=== PATIENT | female | born 1990 | race African-American/Black ===

== ENCOUNTER 2016-11-11 09:31 | Emergency (ER) | payer SELFPAY ==
[~2016-11-11] VITALS: Ht 160 cm; Wt 75.0 kg
[2016-11-11 09:34] VITALS: BP 131/91; PULSE 83; RESP 16; TEMP 98.3; O2SAT 97
[2016-11-11] MEDS ORDERED: SODIUM CHLOR 0.9% 1000 ML INJ 1,000 ML IV SCH (09:44)
--- NOTE | 2016-11-11 09:44 | PD ---
HPI Chief Complaint: GI Complaint Time Seen by Provider: 09:41 Travel History International Travel<30 days: No Contact w/Intl Traveler<30days: No Traveled to known affect area: No History of Present Illness HPI 26-year-old Afro-[place]og[place] female presents the emergency Department with sudden onset nausea, vomiting, and diarrhea since approximately midnight last night. She denies fever, chills, chest pain, shortness of breath, or other symptoms. She denies eating anything suspicious yesterday. She denies significant abdominal pain. Patient states she could be . She denies CVA tenderness or urinary symptoms. She denies vaginal discharge. Patient states history of gallstones that were diagnosed in May, but patient denies abdominal pain. She has no known drug allergies. PFSH Past Medical History ?: Unknown Social History Alcohol Use: Yes Tobacco Use: Yes Substance Use: Yes Allergies-Medications (Allergen,Severity, Reaction): Coded Allergies: No Known Allergies (Unverified , 11/11/16) Reported Meds & Prescriptions Reported Meds & Active Scripts Active Reported Tramadol (Tramadol HCl) 50 Mg Tab 50 Mg PO Q4H PRN Review of Systems Except as stated in HPI: all other systems reviewed are Neg General / Constitutional: No: Fever Eyes: No: Visual changes HENT: No: Headaches Cardiovascular: No: Chest Pain or Discomfort Respiratory: No: Shortness of Breath Gastrointestinal: Positive: Nausea, Vomiting, Diarrhea, Loss of Appetite, No: Abdominal Pain, Constipation Genitourinary: No: Dysuria, Pelvic Pain, Flank Pain, Discharge, Vaginal Bleeding Musculoskeletal: No: Pain Skin: No Rash Neurologic: No: Weakness Psychiatric: No: Depression Endocrine: No: Polydipsia Hematologic/Lymphatic: No: Easy Bruising Physical Exam Narrative GENERAL: Patient appears in no acute distress. SKIN: Warm and dry. Normal color. Normal turgor. No rash. HEAD: Atraumatic. Normocephalic. EYES: Pupils equal and round. No scleral icterus. No injection or drainage. ENT: No nasal bleeding or discharge. Mucous membranes pink and moist. TMs are clear bilaterally. Pharynx is normal. NECK: Trachea midline. Supple and nontender.. CARDIOVASCULAR: Regular rate and rhythm. RESPIRATORY: No accessory muscle use. Clear to auscultation. Breath sounds equal bilaterally. GASTROINTESTINAL: Abdomen soft, non-tender, nondistended. Hepatic and splenic margins not palpable. No CVA tenderness. No right upper quadrant tenderness. MUSCULOSKELETAL: Extremities without clubbing, cyanosis, or edema. No obvious deformities. NEUROLOGICAL: Awake and alert. No obvious cranial nerve deficits. Motor grossly within normal limits. Five out of 5 muscle strength in the arms and legs. Normal speech. PSYCHIATRIC: Appropriate mood and affect; insight and judgment normal. Data Data Last Documented VS Vital Signs Date Time Temp Pulse Resp B/P Pulse Ox O2 Delivery O2 Flow Rate FiO2 11/11/16 10:02 80 14 128/80 99 Room Air 11/11/16 09:34 98.3 Orders Complete Blood Count With Diff (11/11/16 09:44) Comprehensive Metabolic Panel (11/11/16 09:44) Lipase (11/11/16 09:44) Urinalysis - C+S If Indicated (11/11/16 09:44) Iv Access Insert/Monitor (11/11/16 09:44) Ecg Monitoring (11/11/16 09:44) Oximetry (11/11/16 09:44) Ondansetron Inj (Zofran Inj) (11/11/16 09:45) Sodium Chlor 0.9% 1000 Ml Inj (Ns 1000 M (11/11/16 09:44) Sodium Chloride 0.9% Flush (Ns Flush) (11/11/16 09:45) Ed Urine Pregnancytest Poc (11/11/16 09:44) Labs Laboratory Tests Test 11/11/16 11/11/16 09:50 10:00 Urine Color YELLOW Urine Turbidity CLEAR Urine pH 6.0 Urine Specific [place] 1.015 Urine Protein NEG mg/dL Urine Glucose (UA) NEG mg/dL Urine Ketones 10 mg/dL Urine Occult Blood NEG Urine Nitrite NEG Urine Bilirubin NEG Urine Urobilinogen LESS THAN 2.0 MG/DL Urine Leukocyte Esterase MOD Urine RBC LESS THAN 1 /hpf Urine WBC 2 /hpf Urine Squamous Epithelial 2 /hpf Cells Urine Bacteria RARE /hpf Urine Mucus FEW /lpf Microscopic Urinalysis Comment CULT NOT INDICATED White Blood Count 10.8 TH/MM3 Red Blood Count 4.95 MIL/MM3 Hemoglobin 13.6 GM/DL Hematocrit 39.9 % Mean Corpuscular Volume 80.7 FL Mean Corpuscular Hemoglobin 27.4 PG Mean Corpuscular Hemoglobin 34.0 % Concent Red Cell Distribution Width 13.8 % Platelet Count 205 TH/MM3 Mean Platelet Volume 10.9 FL Neutrophils (%) (Auto) 86.5 % Lymphocytes (%) (Auto) 8.9 % Monocytes (%) (Auto) 3.5 % Eosinophils (%) (Auto) 0.7 % Basophils (%) (Auto) 0.4 % Neutrophils # (Auto) 9.4 TH/MM3 Lymphocytes # (Auto) 1.0 TH/MM3 Monocytes # (Auto) 0.4 TH/MM3 Eosinophils # (Auto) 0.1 TH/MM3 Basophils # (Auto) 0.0 TH/MM3 CBC Comment DIFF FINAL Differential Comment Sodium Level 139 MEQ/L Potassium Level 3.8 MEQ/L Chloride Level 105 MEQ/L Carbon Dioxide Level 28.6 MEQ/L Anion Gap 5 MEQ/L Blood Urea Nitrogen 9 MG/DL Creatinine 0.78 MG/DL Estimat Glomerular Filtration 90 ML/MIN Rate Random Glucose 94 MG/DL Calcium Level 10.1 MG/DL Total Bilirubin 0.6 MG/DL Aspartate Amino Transf 12 U/L (AST/SGOT) Alanine Aminotransferase 32 U/L (ALT/SGPT) Alkaline Phosphatase 100 U/L Total Protein 8.9 GM/DL Albumin 4.2 GM/DL Lipase 109 U/L MDM Medical Decision Making Medical Screen Exam Complete: Yes Emergency Medical Condition: Yes Differential Diagnosis Nausea vomiting. Diarrhea. Gastroenteritis. Colitis. Gallstone colic. Urinary tract infection. Possible . Narrative Course Patient is medically stable at time of exam. Labs ordered including CBC, CMP, lipase. Urinalysis is checked as well as urine test. IV access is obtained patient is given 4 mg Zofran IV as well as 1000 mg normal saline bolus. CBC is unremarkable. CMP is unremarkable. Urinalysis shows no sign of active infection. Patient will be treated for gastroenteritis which is felt to be viral in nature. Patient is given Zofran 4 mg one every 6 hours when necessary. Patient can take Tylenol and ibuprofen as well as needed. Patient should rest and push fluids and to take [id number] Imodium as needed for diarrhea. Work note is given. Patient to follow up if symptoms do not improve or worsen in the next several days. Diagnosis Primary Impression: Gastroenteritis and colitis, viral Referrals: Primary Care Physician Patient Instructions: Acute Diarrhea (ED), Acute Nausea and Vomiting (ED), General Instructions Departure Forms: Work Release Enter return to work date: Nov 12, 2016 Additional Instructions: Patient will be treated for gastroenteritis which is felt to be viral in nature. Patient is given Zofran 4 mg one every 6 hours when necessary. Patient can take Tylenol and ibuprofen as well as needed. Patient should rest and push fluids and to take [id number] Imodium as needed for diarrhea. Work note is given. Patient to follow up if symptoms do not improve or worsen in the next several days. Med/Other Pt SpecificInfo: Prescription(s) given Scripts Ondansetron (Zofran)4 Mg Tab4 Mg PO Q6HR PRN (NAUSEA OR VOMITING) #12 TAB Prov:Alycia Crawford MD 11/11/16 Disposition: 01 DISCHARGE HOME Condition: Stable Floyd Lawrence Nov 11, 2016 09:44
[2016-11-11] MEDS ORDERED: SODIUM CHLORIDE 0.9% FLUSH 10 ML FLUSH IV FLUSH PRN (09:45)
[2016-11-11] MEDS ORDERED: ONDANSETRON HCL 4 MG/2 ML VIAL IVP ONE (09:45)
[2016-11-11 10:02] VITALS: BP 128/80; PULSE 80; RESP 14; O2SAT 99
[2016-11-11] MEDS ORDERED: TRAM50TA PO (10:05)
[2016-11-11 10:22] LABS: BACTERIA, URINE RARE /hpf; BLOOD, URINE NEG (NEG); COMMENT (UR) CULT NOT INDICATED; CULTURE IF INDICATED CULT NOT INDICATED; GLUCOSE,URINE NEG (NEG); KETONE, URINE 10 mg/dL (NEG); MUCUS URINE FEW /lpf (OCC); NITRITE,URINE NEG (NEG); SQUAMOUS EPITHELIAL CELL URINE 2 /hpf (0-5); URINE COLOR YELLOW (YELLW/STRAW)
[2016-11-11 10:24] LABS: AUTOMATED NEUTROPHIL # 9.4 TH/MM3 (1.8-7.7); BASOPHIL % 0.4 % (0.0-2.0); EOSINOPHIL # 0.1 TH/MM3 (0-0.4); EOSINOPHIL % 0.7 % (0.0-4.0); HEMATOCRIT 39.9 % (35.0-46.0); HEMO FLAGS DIFF FINAL; LYMPH % 8.9 % (9.0-44.0); MEAN CELL VOLUME 80.7 FL (80.0-100.0); MEAN CORPUSCULAR HEMOGLOBIN 27.4 PG (27.0-34.0); MONO % 3.5 % (0.0-8.0); NEUT % 86.5 % (16.0-70.0); PLATELET COUNT 205 TH/MM3 (150-450); RED BLOOD COUNT 4.95 MIL/MM3 (4.00-5.30); RED CELL DISTRIBUTION WIDTH 13.8 % (11.6-17.2); WHITE BLOOD COUNT 10.8 TH/MM3 (4.0-11.0)
[2016-11-11 10:38] LABS: ALT (GPT) 32 U/L (10-53); ANION GAP 5 MEQ/L (5-15); AST (GOT) 12 U/L (15-37); BICARBONATE 28.6 MEQ/L (21.0-32.0); BLOOD UREA NITROGEN 9 MG/DL (7-18); CHLORIDE 105 MEQ/L (98-107); GLOMERULAR FILTRATION RATE 90 ML/MIN (>89); POTASSIUM 3.8 MEQ/L (3.5-5.1); SODIUM (NA) 139 MEQ/L (136-145)
[2016-11-11 10:41] LABS: ALKALINE PHOSPHATASE 100 U/L (45-117); TOTAL BILIRUBIN ADULT 0.6 MG/DL (0.2-1.0)
[2016-11-11] MEDS ORDERED: ZOFR4TAB PO (10:44)
--- NOTE | 2016-11-11 10:47 | PD ---
Data Data Last Documented VS Vital Signs Date Time Temp Pulse Resp B/P Pulse Ox O2 Delivery O2 Flow Rate FiO2 11/11/16 10:02 80 14 128/80 99 Room Air 11/11/16 09:34 98.3 Orders Complete Blood Count With Diff (11/11/16 09:44) Comprehensive Metabolic Panel (11/11/16 09:44) Lipase (11/11/16 09:44) Urinalysis - C+S If Indicated (11/11/16 09:44) Iv Access Insert/Monitor (11/11/16 09:44) Ecg Monitoring (11/11/16 09:44) Oximetry (11/11/16 09:44) Ondansetron Inj (Zofran Inj) (11/11/16 09:45) Sodium Chlor 0.9% 1000 Ml Inj (Ns 1000 M (11/11/16 09:44) Sodium Chloride 0.9% Flush (Ns Flush) (11/11/16 09:45) Ed Urine Pregnancytest Poc (11/11/16 09:44) Labs Laboratory Tests Test 11/11/16 11/11/16 09:50 10:00 Urine Color YELLOW Urine Turbidity CLEAR Urine pH 6.0 Urine Specific [place] 1.015 Urine Protein NEG mg/dL Urine Glucose (UA) NEG mg/dL Urine Ketones 10 mg/dL Urine Occult Blood NEG Urine Nitrite NEG Urine Bilirubin NEG Urine Urobilinogen LESS THAN 2.0 MG/DL Urine Leukocyte Esterase MOD Urine RBC LESS THAN 1 /hpf Urine WBC 2 /hpf Urine Squamous Epithelial 2 /hpf Cells Urine Bacteria RARE /hpf Urine Mucus FEW /lpf Microscopic Urinalysis Comment CULT NOT INDICATED White Blood Count 10.8 TH/MM3 Red Blood Count 4.95 MIL/MM3 Hemoglobin 13.6 GM/DL Hematocrit 39.9 % Mean Corpuscular Volume 80.7 FL Mean Corpuscular Hemoglobin 27.4 PG Mean Corpuscular Hemoglobin 34.0 % Concent Red Cell Distribution Width 13.8 % Platelet Count 205 TH/MM3 Mean Platelet Volume 10.9 FL Neutrophils (%) (Auto) 86.5 % Lymphocytes (%) (Auto) 8.9 % Monocytes (%) (Auto) 3.5 % Eosinophils (%) (Auto) 0.7 % Basophils (%) (Auto) 0.4 % Neutrophils # (Auto) 9.4 TH/MM3 Lymphocytes # (Auto) 1.0 TH/MM3 Monocytes # (Auto) 0.4 TH/MM3 Eosinophils # (Auto) 0.1 TH/MM3 Basophils # (Auto) 0.0 TH/MM3 CBC Comment DIFF FINAL Differential Comment Sodium Level 139 MEQ/L Potassium Level 3.8 MEQ/L Chloride Level 105 MEQ/L Carbon Dioxide Level 28.6 MEQ/L Anion Gap 5 MEQ/L Blood Urea Nitrogen 9 MG/DL Creatinine 0.78 MG/DL Estimat Glomerular Filtration 90 ML/MIN Rate Random Glucose 94 MG/DL Calcium Level 10.1 MG/DL Total Bilirubin 0.6 MG/DL Aspartate Amino Transf 12 U/L (AST/SGOT) Alanine Aminotransferase 32 U/L (ALT/SGPT) Alkaline Phosphatase 100 U/L Total Protein 8.9 GM/DL Albumin 4.2 GM/DL Lipase 109 U/L MDM Supervised Visit with ESTELA: Yes Narrative Course I, Dr. Crawford, have reviewed the advance practice practioner's documentation and am in agreement, met with the patient face to face, made the diagnosis, and the medical decision making was done by me. *My assessment and Findings: 26-year-old female with nausea vomiting diarrhea since last night. Mild crampy abdominal pain, but nothing significant. Benign abdominal examination on my evaluation, suspect gastroenteritis. Differential includes gastritis, pancreatitis, hepatobiliary pathology. Laboratory workup unremarkable and patient felt improved after symptomatic treatment will be discharged home with Zofran when necessary. Diagnosis Primary Impression: Gastroenteritis and colitis, viral Referrals: Primary Care Physician Patient Instructions: General Instructions, Acute Nausea and Vomiting (ED), Acute Diarrhea (ED) Departure Forms: Work Release Enter return to work date: Additional Instruction: Patient will be treated for gastroenteritis which is felt to be viral in nature. Patient is given Zofran 4 mg one every 6 hours when necessary. Patient can take Tylenol and ibuprofen as well as needed. Patient should rest and push fluids and to take [id number] Imodium as needed for diarrhea. Work note is given. Patient to follow up if symptoms do not improve or worsen in the next several days. Med/Other Pt SpecificInfo: Prescription(s) given Scripts Ondansetron (Zofran)4 Mg Tab4 Mg PO Q6HR PRN (NAUSEA OR VOMITING) #12 TAB Prov:Alycia Crawford MD 11/11/16 Disposition: 01 DISCHARGE HOME Condition: Stable Alycia Crawford MD Nov 11, 2016 10:47
== END 2016-11-11 10:58 | disposition home or self-care (01) ==
LOC: NEPD 09:31
DX: A08.4 Viral intestinal infection, unspecified (principal); Z72.0 Tobacco use; Z79.899 Other long term (current) drug therapy
CPT/HCPCS: 80053; 81001; 83690; 84703; 85025; 96361; 96374; 99284; J2405; J7030

== ENCOUNTER 2017-06-12 12:50 | Emergency (ER) | payer MEDICAID ==
[~2017-06-12] VITALS: Ht 160 cm; Wt 75.0 kg
[~2017-06-12 12:50] MED LIST: TRAM50TA PO; ZOFR4TAB PO
[2017-06-12 12:51] VITALS: BP 121/85; PULSE 73; RESP 16; TEMP 98.5; O2SAT 98
[2017-06-12 13:33] LABS: AUTOMATED NEUTROPHIL # 3.4 TH/MM3 (1.8-7.7); BASOPHIL # 0.1 TH/MM3 (0-0.2); BASOPHIL % 1.1 % (0.0-2.0); EOSINOPHIL # 0.2 TH/MM3 (0-0.4); EOSINOPHIL % 2.5 % (0.0-4.0); HEMATOCRIT 37.2 % (35.0-46.0); HEMOGLOBIN 12.7 GM/DL (11.6-15.3); LYMPH % 42.3 % (9.0-44.0); LYMPHOCYTE # 3.2 TH/MM3 (1.0-4.8); MEAN CELL VOLUME 82.1 FL (80.0-100.0); MEAN CORPUSCULAR HGB CONC 34.1 % (32.0-36.0); MEAN PLATELET VOLUME 10.5 FL (7.0-11.0); MONO % 8.3 % (0.0-8.0); MONOCYTE # 0.6 TH/MM3 (0-0.9); NEUT % 45.8 % (16.0-70.0); PLATELET COUNT 169 TH/MM3 (150-450); RED BLOOD COUNT 4.52 MIL/MM3 (4.00-5.30); RED CELL DISTRIBUTION WIDTH 13.8 % (11.6-17.2); WHITE BLOOD COUNT 7.5 TH/MM3 (4.0-11.0)
[2017-06-12 13:48] LABS: ALT (GPT) 21 U/L (10-53); AST (GOT) 12 U/L (15-37); BICARBONATE 28.8 MEQ/L (21.0-32.0); BLOOD UREA NITROGEN 8 MG/DL (7-18); CALCIUM 9.1 MG/DL (8.5-10.1); CHLORIDE 105 MEQ/L (98-107); CREATININE 0.85 MG/DL (0.50-1.00); GLOMERULAR FILTRATION RATE 98 ML/MIN (>89); GLUCOSE,RANDOM 83 MG/DL (74-106); LIPASE 132 U/L (73-393); SODIUM (NA) 141 MEQ/L (136-145)
[2017-06-12 13:51] LABS: ALKALINE PHOSPHATASE 96 U/L (45-117); TOTAL BILIRUBIN ADULT 0.4 MG/DL (0.2-1.0); TOTAL PROTEIN 8.4 GM/DL (6.4-8.2)
--- NOTE | 2017-06-12 14:19 | PD ---
HPI Chief Complaint: GI Complaint Time Seen by Provider: 14:11 Travel History International Travel<30 days: No Contact w/Intl Traveler<30days: No Traveled to known affect area: No History of Present Illness HPI This is a 27-year-old female who presents to the emergency department with vaginal bleeding that has been very irregular. She says she had her menstrual cycle twice this month and then late last month and she says her breasts have been more tender the past week, constant, moderate severity with no associated fevers, chills or abdominal pain. She says she has been nauseous and she is thrown up. She "most certainly" thinks that she is . PFSH Past Medical History Medical History: Denies Significant Hx Gastrointestinal Disorders: Yes (gallstones ) Tetanus Vaccination: Unknown Influenza Vaccination: No ?: Unknown LMP: 06/11/2017 Dilation and Curettage (D&C): Yes Social History Alcohol Use: Yes (OCC) Tobacco Use: No Substance Use: Yes (MARIJUANA) Allergies-Medications (Allergen,Severity, Reaction): Coded Allergies: No Known Allergies (Unverified Adverse Reaction, Unknown, 06/12/17) Reported Meds & Prescriptions Reported Meds & Active Scripts Active Zofran (Ondansetron HCl) 4 Mg Tab 4 Mg PO Q6HR PRN Reported Tramadol (Tramadol HCl) 50 Mg Tab 50 Mg PO Q4H PRN Review of Systems Except as stated in HPI: all other systems reviewed are Neg Physical Exam Narrative GENERAL:Well appearing, no acute distress SKIN: Focused skin assessment warm and dry. HEAD: Atraumatic. Normocephalic. EYES: Pupils equal and round. No injection or drainage. ENT: Moist mucous membranes NECK: Trachea midline. CARDIOVASCULAR: Regular rate and rhythm. No murmur appreciated. RESPIRATORY: Clear to auscultation. Breath sounds equal bilaterally. GASTROINTESTINAL: Abdomen soft, non-tender, nondistended. MUSCULOSKELETAL: No obvious deformities. NEUROLOGICAL: Awake and alert. No obvious cranial nerve deficits. Moving all extremities. PSYCHIATRIC: Appropriate mood and affect; insight and judgment normal. Data Data Last Documented VS Vital Signs Date Time Temp Pulse Resp B/P (MAP) Pulse Ox O2 Delivery O2 Flow Rate FiO2 06/12/17 13:52 16 06/12/17 12:51 98.5 73 121/85 (97) 98 Room Air Orders Orders Complete Blood Count With Diff (06/12/17 13:13) Comprehensive Metabolic Panel (06/12/17 13:13) Lipase (06/12/17 13:13) Urinalysis - C+S If Indicated (06/12/17 13:13) Ed Urine Pregnancytest Poc (06/12/17 13:13) Labs Laboratory Tests Test 06/12/17 13:22 White Blood Count 7.5 TH/MM3 Red Blood Count 4.52 MIL/MM3 Hemoglobin 12.7 GM/DL Hematocrit 37.2 % Mean Corpuscular Volume 82.1 FL Mean Corpuscular Hemoglobin 28.0 PG Mean Corpuscular Hemoglobin Concent 34.1 % Red Cell Distribution Width 13.8 % Platelet Count 169 TH/MM3 Mean Platelet Volume 10.5 FL Neutrophils (%) (Auto) 45.8 % Lymphocytes (%) (Auto) 42.3 % Monocytes (%) (Auto) 8.3 % Eosinophils (%) (Auto) 2.5 % Basophils (%) (Auto) 1.1 % Neutrophils # (Auto) 3.4 TH/MM3 Lymphocytes # (Auto) 3.2 TH/MM3 Monocytes # (Auto) 0.6 TH/MM3 Eosinophils # (Auto) 0.2 TH/MM3 Basophils # (Auto) 0.1 TH/MM3 CBC Comment AUTO DIFF Blood Urea Nitrogen 8 MG/DL Creatinine 0.85 MG/DL Random Glucose 83 MG/DL Total Protein 8.4 GM/DL Albumin 4.0 GM/DL Calcium Level 9.1 MG/DL Alkaline Phosphatase 96 U/L Aspartate Amino Transf (AST/SGOT) 12 U/L Alanine Aminotransferase (ALT/SGPT) 21 U/L Total Bilirubin 0.4 MG/DL Sodium Level 141 MEQ/L Potassium Level 3.7 MEQ/L Chloride Level 105 MEQ/L Carbon Dioxide Level 28.8 MEQ/L Anion Gap 7 MEQ/L Estimat Glomerular Filtration Rate 98 ML/MIN Lipase 132 U/L MDM Medical Decision Making Medical Screen Exam Complete: Yes Emergency Medical Condition: Yes Interpretation(s) Afebrile, no tachycardia, normotensive [id number] is negative No leukocytosis Electrolytes are reassuring Lipase is normal Differential Diagnosis , ectopic , dysfunctional uterine bleeding, urinary tract infection Narrative Course This is a 27-year-old female who presents to the emergency department with breast tenderness, vaginal bleeding and nausea and vomiting. She thought she was . Labs are reassuring and urinalysis is negative for infection. [id number] test is negative. I do not suspect an acute emergency. Patient can be discharged home. Diagnosis Primary Impression: Dysfunctional uterine bleeding Patient Instructions: General Instructions Additional Instructions: Follow up with [facility] at: Follow up with: [facility] [address] [place] [address] [address] [place] [address] Office Hours Monday - 9:00 am - 5:30 pm Monday 8:00 am - 12:00 pm Teen Tuesdays 4:00 - 6:30 pm Med/Other Pt SpecificInfo: No Change to Meds Disposition: 01 DISCHARGE HOME Condition: Stable Vane Raman MD Jun 12, 2017 14:18
[2017-06-12 14:36] LABS: BACTERIA, URINE OCC /hpf; BILIRUBIN, URINE NEG (NEG); BLOOD, URINE LARGE (NEG); GLUCOSE,URINE NEG (NEG); KETONE, URINE NEG (NEG); MUCUS URINE FEW /lpf (OCC); NITRITE,URINE NEG (NEG); PH, URINE 5.5 (5.0-8.5); SQUAMOUS EPITHELIAL CELL URINE 2 /hpf (0-5); URINE COLOR YELLOW (YELLW/STRAW); URINE LEUKOCYTE ESTERASE NEG (NEG)
== END 2017-06-12 14:29 | disposition home or self-care (01) ==
LOC: NEPD 12:50
DX: N93.8 Other specified abnormal uterine and vaginal bleeding (principal)
CPT/HCPCS: 80053; 81001; 83690; 84703; 85025; 99283